=== PATIENT | male | born 1960 | race African-American/Black ===

== ENCOUNTER 2016-08-18 19:18 | Emergency (ER) | payer MEDICARE ==
[~2016-08-18] VITALS: Ht 198.1 cm; Wt 6.0 kg
[~2016-08-18 19:18] MED LIST: ALTACE10 M1 PO; ALTACE10 MG OR; AMOXICILLIN500 MG OR; BACTRIM DS1 TAB PO; BUPROPION150 M1 PO; CALCIUM500 M5 OR; CELEXA20 M1 PO; COLACE50 MG OR; ERY-TAB333 MG OR; HYDROCHLOROT12.5 M1 OR; HYDROCHLOROT12.5 MG PO; MELOXICAM7.5 MG PO; OMEGA 31000 MG PO; PLAVIX75 MG OR; PLAVIX75 MG PO; PRILOSEC10 M1 OR; PROTONIX40 M2 PO; ROBITUSSIN AC10 ML OR; SIMVASTATIN20 MG PO; ULTRAM50 M1 PO; WARFARIN5 MG OR; WARFARIN7.5 MG OR; ZOCOR10 MG OR; ZOLPIDEM10 M1 PO
[2016-08-18] MEDS ORDERED: HYDROCHLOROT12.5 MG PO (19:42)
[2016-08-18 21:06] LABS: INFLUENZA A NONE DETECTED (NONE DETECT); INFLUENZA B NONE DETECTED (NONE DETECT)
[2016-08-18 22:46] LABS: HEMOGLOBIN 11.3 g/dl (14.0-18.0); IMMATURE GRANULOCYTES 0.3 % (0.0-1.0); MEAN CELL VOLUME 81.1 fL CALC (80.0-100.0); MEAN CORPUSCULAR HGB 25.5 pG CALC (26.0-32.0); MEAN CORPUSCULAR HGB CONC 31.4 g/L CALC (32.0-36.0); NEUT# 5.26 thou/uL (1.82-7.42); RED BLOOD COUNT 4.44 mill/uL (4.70-6.10); RED CELL DISTRI WIDTH 16.3 % (11.5-15.5)
[2016-08-18 23:07] LABS: ALBUMIN 3.6 g/dL (3.2-5.0); ALKALINE PHOSPHATASE 78 u/l (38-126); ANION GAP 12 (6-22 (CALC)); BILIRUBIN, TOTAL 0.6 mg/dL (0.0-1.4); BUN 16 mg/dL (9-20); BUN/CREATININE RATIO 11 (12-20 (CALC)); CALCIUM 8.6 mg/dL (8.4-10.2); CARBON DIOXIDE 26 mmol/l (22-30); CHLORIDE 107 mmol/l (95-108); CREATININE 1.4 mg/dL (0.7-1.3); GFR 52 ML/MIN (>=60 (CALC)); GFR FOR AFR.AMER. > 60 ML/MIN (>=60 (CALC)); GLUCOSE 110 mg/dL (75-110); SGOT/AST 23 u/l (17-59); SGPT/ALT 28 u/l (21-72); SODIUM 141 mmol/l (137-146); TOTAL PROTEIN 6.4 g/dL (6.3-8.2)
[2016-08-19 00:50] LABS: URINE BILIRUBIN - DIPSTICK NEGATIVE (NEGATIVE); URINE BLOOD DIPSTICK TRACE-LYSED (NEGATIVE); URINE CLARITY CLEAR; URINE COLOR YELLOW; URINE GLUCOSE - DIPSTICK NEGATIVE (NEGATIVE); URINE KETONE TRACE mg/dL (NEGATIVE); URINE LEUK ESTERASE NEGATIVE (NEGATIVE); URINE NITRITE - DIPSTICK NEGATIVE (Negative); URINE PH 5.5 (4.5-8.0); URINE PROTEIN - DIPSTICK NEGATIVE (NEG-TRACE)
[2016-08-19] MEDS ORDERED: CODEINE/GUAIFEN1 SOL PO (01:27)
[2016-08-19] MEDS ORDERED: CIPROFLOXACN500 MG PO (01:27)
[2016-08-19 01:36] VITALS: BP 104/68
== END 2016-08-19 01:40 | disposition home or self-care (01) ==
LOC: ED 19:18
PROVIDERS: Emergency Medicine
DX: J06.9 Acute upper respiratory infection, unspecified (principal); R07.9 Chest pain, unspecified; R05 Cough; R00.1 Bradycardia, unspecified; R50.9 Fever, unspecified; I10 Essential (primary) hypertension

== ENCOUNTER 2019-12-14 04:05 | Observation (INO) | payer MEDICARE ==
[~2019-12-14] VITALS: Ht 182.9 cm; Wt 80.0 kg
[~2019-12-14 04:05] MED LIST changes: +CIPROFLOXACN500 MG PO; +CODEINE/GUAIFEN1 SOL PO
--- NOTE | 2019-12-14 04:15 | NUR ---
PATIENT AMBULATED TO ROOM WITH SKLOW STEADY GAIT AND PHYSICIAN NOTIFIED OF PATIENT STATUS
--- NOTE | 2019-12-14 04:31 | NUR ---
PATIENT UNABLE TO VERIFY MEDICATIONS AT THIS TIME. PHARMACY CNSULT PLACED
[2019-12-14 04:53] LABS: HEMATOCRIT 37.4 % (39.0-50.0); HEMOGLOBIN 11.5 g/dl (14.0-18.0); IMMATURE GRANULOCYTES 0.3 % (0.0-5.0); MEAN CELL VOLUME 81.5 fL CALC (80.0-100.0); MEAN CORPUSCULAR HGB 25.1 pG CALC (26.0-32.0); MEAN CORPUSCULAR HGB CONC 30.7 g/dL CAL (32.0-36.0); NEUT# 5.19 thou/uL (1.82-7.42); RED BLOOD COUNT 4.59 mill/uL (4.70-6.10); RED CELL DISTRI WIDTH 18.3 % (11.5-15.5)
[2019-12-14 05:08] LABS: ALKALINE PHOSPHATASE 92 u/l (38-126); AMYLASE 205 u/l (30-110); ANION GAP 9 (6-22 (CALC)); BILIRUBIN, TOTAL 0.6 mg/dL (0.0-1.4); BUN 24 mg/dL (9-20); BUN/CREATININE RATIO 17 (12-20 (CALC)); CARBON DIOXIDE 24 mmol/l (22-30); CHLORIDE 111 mmol/l (95-108); CREATININE 1.4 mg/dL (0.7-1.3); GFR 52 ML/MIN (>=60 (CALC)); GFR FOR AFR.AMER. > 60 ML/MIN (>=60 (CALC)); LIPASE 1098 u/l (23-300); POTASSIUM 3.8 mmol/l (3.5-5.1); SGOT/AST 22 u/l (17-59); SODIUM 139 mmol/l (137-146)
[2019-12-14 05:18] LABS: ALBUMIN 4.6 g/dL (3.2-5.0); TOTAL PROTEIN 7.9 g/dL (6.3-8.2)
--- NOTE | 2019-12-14 05:30 | NUR ---
PATIENT RESTING AWAITING LAB AND RADIOLOGY RESULTS PATINT STATES PAIN 3 ON 0-10 SCALE
--- NOTE | 2019-12-14 06:31 | NUR ---
PATIENT RESTING AWAITNG ROOM ASSIGNMENT PATIENT STATES PAIN 4 ON 0-10 SCALE
--- NOTE | 2019-12-14 06:47 | NUR ---
RECIEVED REPORT FROM MAYKEL LUCIANO.
--- NOTE | 2019-12-14 07:10 | NUR ---
GAVE REPORT TO CLIFTON
--- NOTE | 2019-12-14 07:17 | NUR ---
PT ARRIVED TO FLOOR VIA WC ACCOMAPNIED BY ED STAFF X 1. PT AMBULATED BY SELF INTO ROOM. PT. ALERT AND ORIENTED. STEADY GAIT. DENIES DIZZINESS. PT ORIENTED TO ROOM AND EQUIPMENT. CALL LIGHT REVIEWED AND IN REACH. PLAN OF CARE REVIEWED. PT. EDUCATED ON DISEASE PROCESS, DIET, AND IVF, STATES UNDERSTANDING. #20 RAC, NS @ 125 ML/HR STARTED AT THIS TIME. PT. DENIES PAIN AT THIS TIME.
--- NOTE | 2019-12-14 07:21 | NUR ---
PT TRANSPORTED TO [facility] SURG STABLE AND IN NO DISTRESS BY W/C. CARE ASSUMED TO CLIFTON Admission Note Report Given to: Transported by: X Wheelchair Stretcher Transported with: X Nurse Transporter X Patent IV O2 Pediatric Care Coordinator Location: ICU X MS2
[2019-12-14 07:31] VITALS: BP 147/82
[2019-12-14 07:55] LABS: URINE BILIRUBIN - DIPSTICK NEGATIVE (NEGATIVE); URINE BLOOD DIPSTICK TRACE-INTACT (NEGATIVE); URINE COLOR YELLOW; URINE GLUCOSE - DIPSTICK NEGATIVE (NEGATIVE); URINE KETONE NEGATIVE (NEGATIVE); URINE LEUK ESTERASE NEGATIVE (NEGATIVE); URINE NITRITE - DIPSTICK NEGATIVE (Negative); URINE PH 5.5 (4.5-8.0); URINE PROTEIN - DIPSTICK NEGATIVE (NEG-TRACE); URINE SPECIFIC GRAVITY 1.025
--- NOTE | 2019-12-14 09:47 | NUR ---
SHANTAL VERA IN TO SEE PT. AT THIS TIME. PLAN OF CARE UPDATED.
[2019-12-14] MEDS ORDERED: RAMIPRIL2.5 MG PO (10:31)
[2019-12-14] MEDS ORDERED: PLAVIX75 MG PO (10:32)
[2019-12-14] MEDS ORDERED: PROTONIX40 M2 PO (10:32)
[2019-12-14] MEDS ORDERED: CELEBREX100 M1 PO (10:32)
--- NOTE | 2019-12-14 12:25 | NUR ---
DR. FRANCO IN TO SEE PT. AT THIS TIME.
[2019-12-14 15:00] VITALS: BP 144/85
[2019-12-14 15:28] LABS: CHOLESTEROL HDL RATIO 4.5 (<4.4 (CALC))
--- NOTE | 2019-12-14 16:01 | NUR ---
PT. REPORTS NO RELIEF OF RUQ ABDOMINAL PIN FOLLOWING MORPHINE IV ADMINISTRATION. SHANTAL VERA NOTIFIED. TORADOL IV ORDERED AND ADMINISTERED. WILL MONITOR FOR EFFECTIVNESS.
[2019-12-14 19:10] VITALS: BP 144/89
--- NOTE | 2019-12-14 21:58 | NUR ---
PT ASSESSMENT COMPLETED AT THIS TIME. DENIES PAIN AT THIS TIME. REQUESTS SNACK. CHIP BAGS ARE VISUALIZED IN THE TRASHCAN, I REMINDED PT THAT HE IS ON A CLEAR LIQUID DIET. HUNGARIAN ICE PROVIDED/OFFERED JELLO, BUT IT WAS UNAVAILABLE. PT DENIES ANY OTHER NEEDS. LEFT WATCHING TV AND TALKING ON CELLPHONE.
--- NOTE | 2019-12-14 23:53 | NUR ---
IVF REPLENISHED AT THIS TIME. PT SLEEPING, NO S/O DISTRESS NOTED AT THIS TIME. LIGHTS ARE OUT AND TV ON LOW. PO FLUIDS REMOVED FROM BEDSIDE. PT REMINDED EARLIER ABOUT BECOMING NPO AT MIDNIGHT, EXPRESSED UNDERSTANDING.
--- NOTE | 2019-12-15 02:19 | NUR ---
PT SLEEPING, NO S/O DISTRESS.
[2019-12-15 03:50] VITALS: BP 147/87
--- NOTE | 2019-12-15 04:15 | NUR ---
PT MEDICATED FOR HEADACHE, DENIES ANY OTHER NEEDS OR C/O AT THIS TIME. CALL LIGHT AT SIDE AND PT ENCOURAGED TO CALL NEEDS ARISE.
--- NOTE | 2019-12-15 05:05 | NUR ---
PT SLEEPING, NO S/O DISTRESS NOTED. VIP CLEARED AT THIS TIME.
[2019-12-15 05:28] LABS: HEMATOCRIT 33.7 % (39.0-50.0); HEMOGLOBIN 10.1 g/dl (14.0-18.0); MEAN CELL VOLUME 82.2 fL CALC (80.0-100.0); MEAN CORPUSCULAR HGB 24.6 pG CALC (26.0-32.0); RED BLOOD COUNT 4.1 mill/uL (4.70-6.10); RED CELL DISTRI WIDTH 17.9 % (11.5-15.5)
[2019-12-15 05:49] LABS: ALKALINE PHOSPHATASE 74 u/l (38-126); ANION GAP 7 (6-22 (CALC)); BILIRUBIN, TOTAL 0.5 mg/dL (0.0-1.4); BUN 17 mg/dL (9-20); BUN/CREATININE RATIO 14 (12-20 (CALC)); CARBON DIOXIDE 22 mmol/l (22-30); CHLORIDE 111 mmol/l (95-108); CREATININE 1.2 mg/dL (0.7-1.3); GFR > 60 ML/MIN (>=60 (CALC)); GFR FOR AFR.AMER. > 60 ML/MIN (>=60 (CALC)); LIPASE 619 u/l (23-300); POTASSIUM 4.2 mmol/l (3.5-5.1); SGOT/AST 16 u/l (17-59); SODIUM 136 mmol/l (137-146); TOTAL PROTEIN 6.6 g/dL (6.3-8.2)
[2019-12-15 05:51] LABS: ALBUMIN 3.6 g/dL (3.2-5.0)
--- NOTE | 2019-12-15 06:23 | NUR ---
IVF REPLENISHED AT THIS TIME. PT SLEEPING, BUT AWOKE TO MY ENTERING THE ROOM. DID NOT RESPOND VERBALLY, JUST TURNED BACK OVER AND CLOSED HIS EYES TO RETURN TO SLEEP. NO S/O DISTRESS. ROOM IS DARK AND TV IS ON.
[2019-12-15 07:25] VITALS: BP 132/81
--- NOTE | 2019-12-15 07:25 | NUR ---
ASSESSMENT IS COMPLETED: IV SITE IS FREE FROM REDNESS OR EDEMA. HR IS REG,PULSES ARE STRONG X4, ABD IS SOFT WITH ACTIVE BS. BREATH SOUNDS ARE CLEAR,BILATERALLY, NO C/O SOB, CONTINUE TO OBSERVE AND MONITOR.
--- NOTE | 2019-12-15 10:50 | NUR ---
PT TRANSPORTED TO HAVE US COMPLETED VIA WC WITH NO DISTRESS NOTED.
--- NOTE | 2019-12-15 12:00 | NUR ---
PT IS IN US. CONTINUE TO OBSERVE AND MONITOR.
--- NOTE | 2019-12-15 12:30 | NUR ---
PT RETURNED FROM HAVING US COMPLETED: TOLERATED WELL. INQUIRED ABOUT PNEUMONIA VACCINE. WILL WAIT ON GETTING IT.
--- NOTE | 2019-12-15 14:52 | NUR ---
IV SITE DISCONITNUED CATHETER INTACT. NO REDNESS OR EDEMA. DISCHARGE INSTRUCTIONS GIVEN AND VERBALIZED UNDERSTANDING. Discharge instructions given. Patient verbalizes understanding of same. Discharged in stable condition via Wheelchair to Home with family. All belongings sent with pt.
--- NOTE | 2019-12-15 14:53 | NUR ---
PT TRANSPORTED TO THE FRONT FOR DISCHARGE WITH FAMILY
== END 2019-12-15 14:52 | disposition home or self-care (01) ==
LOC: ED 04:05 → ED-I 06:14 → ED 06:27 → MS2 06:28 → ED-I 06:28 → MS2 07:06
PROVIDERS: Nurse Practitioner Family; ADMIT Internal Medicine; ATTEND Internal Medicine
PROC: 3E0234Z Introduction of Serum, Toxoid and Vaccine into Muscle, Percutaneous Approach (ICD-10-PCS; principal; 2019-12-15)
DX: K85.90 Acute pancreatitis without necrosis or infection, unspecified (principal); I10 Essential (primary) hypertension; E78.5 Hyperlipidemia, unspecified; F17.200 Nicotine dependence, unspecified, uncomplicated; Z87.11 Personal history of peptic ulcer disease; Z86.73 Personal history of transient ischemic attack (TIA), and cerebral infarction without residual deficits; Z23 Encounter for immunization; Z20.828 Contact with and (suspected) exposure to other viral communicable diseases
CPT/HCPCS: G0378; Q9967

== ENCOUNTER 2020-07-20 08:20 | Emergency (ER) | payer MEDICARE ==
[~2020-07-20] VITALS: Ht 182.9 cm; Wt 83.0 kg
[~2020-07-20 08:20] MED LIST changes: +CELEBREX100 M1 PO; +RAMIPRIL2.5 MG PO
[2020-07-20] MEDS ORDERED: HYDROCHLOROT25 MG PO (08:43)
[2020-07-20] MEDS ORDERED: TOBRAMYCIN0.31 OD (09:23)
[2020-07-20 09:52] VITALS: BP 126/85
== END 2020-07-20 10:07 | disposition home or self-care (01) ==
LOC: ED 08:20
DX: S05.01XA Injury of conjunctiva and corneal abrasion without foreign body, right eye, initial encounter (principal); H10.9 Unspecified conjunctivitis; I10 Essential (primary) hypertension; F17.210 Nicotine dependence, cigarettes, uncomplicated; X58.XXXA Exposure to other specified factors, initial encounter; Z86.73 Personal history of transient ischemic attack (TIA), and cerebral infarction without residual deficits

== ENCOUNTER 2020-09-22 22:29 | Emergency (ER) | payer MEDICARE ==
[~2020-09-22 22:29] MED LIST changes: +HYDROCHLOROT25 MG PO; +TOBRAMYCIN0.31 OD
[2020-09-22 22:58] VITALS: BP 113/76
[2021-05-29] MEDS ORDERED: CLOPIDOGREL75 MG PO (07:24)
== END 2020-09-23 00:31 | disposition home or self-care (01) ==
LOC: ED 22:29
DX: L76.22 Postprocedural hemorrhage of skin and subcutaneous tissue following other procedure (principal); I10 Essential (primary) hypertension; F17.200 Nicotine dependence, unspecified, uncomplicated; Y84.0 Cardiac catheterization as the cause of abnormal reaction of the patient, or of later complication, without mention of misadventure at the time of the procedure; Z86.73 Personal history of transient ischemic attack (TIA), and cerebral infarction without residual deficits

== ENCOUNTER 2021-02-18 16:04 | Emergency (ER) | payer MEDICARE ==
[~2021-02-18] VITALS: Ht 182.9 cm; Wt 100.0 kg
[2021-02-18] MEDS ORDERED: CELEXA20 MG PO (16:34)
[2021-02-18] MEDS ORDERED: AMLODIPINE BESYL5 MG PO (16:34)
[2021-02-18] MEDS ORDERED: ALTACE10 MG PO (16:34)
[2021-02-18 18:05] VITALS: BP 122/79
== END 2021-02-18 18:05 | disposition home or self-care (01) ==
LOC: ED 16:04
DX: S20.211A Contusion of right front wall of thorax, initial encounter (principal); I10 Essential (primary) hypertension; F17.200 Nicotine dependence, unspecified, uncomplicated; W17.89XA Other fall from one level to another, initial encounter; Y92.009 Unspecified place in unspecified non-institutional (private) residence as the place of occurrence of the external cause; Z86.73 Personal history of transient ischemic attack (TIA), and cerebral infarction without residual deficits

== ENCOUNTER 2022-03-16 19:58 | Emergency (ER) | payer MEDICARE ==
[~2022-03-16] VITALS: Ht 182.9 cm; Wt 81.8 kg
[~2022-03-16 19:58] MED LIST changes: +ALTACE10 MG PO; +AMLODIPINE BESYL5 MG PO; +CELEXA20 MG PO; +CLOPIDOGREL75 MG PO
[2022-03-16] MEDS ORDERED: ALTACE10 M1 PO (20:14)
[2022-03-16] MEDS ORDERED: PLAVIX75 MG PO (20:15)
[2022-03-16] MEDS ORDERED: AMOXICILLIN500 MG PO (20:22)
[2022-03-16] MEDS ORDERED: TYLENOL # 31 TA1 PO (20:22)
[2022-03-16] MEDS ORDERED: VOLTAREN75 MG PO (20:22)
[2022-03-16 20:26] VITALS: BP 136/93
== END 2022-03-16 20:40 | disposition home or self-care (01) ==
LOC: ED 19:58
DX: K04.7 Periapical abscess without sinus (principal); I10 Essential (primary) hypertension; F17.200 Nicotine dependence, unspecified, uncomplicated; Z86.73 Personal history of transient ischemic attack (TIA), and cerebral infarction without residual deficits

== ENCOUNTER 2022-06-05 04:54 | Emergency (ER) | payer MEDICARE ==
[~2022-06-05] VITALS: Ht 182.9 cm; Wt 84.1 kg
[~2022-06-05 04:54] MED LIST changes: +AMOXICILLIN500 MG PO; +TYLENOL # 31 TA1 PO; +VOLTAREN75 MG PO
[2022-06-05 05:09] VITALS: BP 128/86
[2022-06-05 05:15] VITALS: BP 126/93
[2022-06-05] MEDS ORDERED: CELEBREX200 MG PO (05:24)
[2022-06-05 05:30] VITALS: BP 147/98
== END 2022-06-05 05:41 | disposition home or self-care (01) ==
LOC: ED 04:54
DX: M26.651 Arthropathy of right temporomandibular joint (principal); I10 Essential (primary) hypertension; F17.210 Nicotine dependence, cigarettes, uncomplicated; Z86.73 Personal history of transient ischemic attack (TIA), and cerebral infarction without residual deficits

== ENCOUNTER 2022-09-03 18:20 | Emergency (ER) | payer MEDICARE ==
[2022-09-03] VITALS (16 sets, daily range): BP systolic 134–170; BP diastolic 81–103
[~2022-09-03] VITALS: Ht 182.9 cm; Wt 82.4 kg
[~2022-09-03 18:20] MED LIST changes: +CELEBREX200 MG PO
[2022-09-03 19:20] LABS: URINE BILIRUBIN - DIPSTICK NEGATIVE (NEGATIVE); URINE BLOOD DIPSTICK TRACE-INTACT (NEGATIVE); URINE COLOR YELLOW; URINE GLUCOSE - DIPSTICK NEGATIVE (NEGATIVE); URINE KETONE NEGATIVE (NEGATIVE); URINE LEUK ESTERASE NEGATIVE (NEGATIVE); URINE PROTEIN - DIPSTICK NEGATIVE (NEG-TRACE)
[2022-09-03 19:20] LABS: BASO% 0.4 % (0-3); EOS% 3.8 % (0-8); HEMATOCRIT 37.6 % (39.0-50.0); HEMOGLOBIN 11.4 g/dl (14.0-18.0); IMMATURE GRANULOCYTES 0.1 % (0.0-5.0); LYMPH% 32.7 % (15-41); MEAN CELL VOLUME 83.4 fL CALC (80.0-100.0); MEAN CORPUSCULAR HGB 25.3 pG CALC (26.0-32.0); MEAN CORPUSCULAR HGB CONC 30.3 g/dL CAL (32.0-36.0); MONO% 7.5 % (2-13); NEUT# 4.06 thou/uL (1.82-7.42); NEUT% 55.5 % (42-76); RED BLOOD COUNT 4.51 mill/uL (4.70-6.10); RED CELL DISTRI WIDTH 16.3 % (11.5-15.5)
[2022-09-03 19:22] LABS: URINE NITRITE - DIPSTICK NEGATIVE (Negative)
[2022-09-03 19:31] LABS: ALKALINE PHOSPHATASE 85 u/l (38-126); ANION GAP 12 (6-22 (CALC)); BILIRUBIN, TOTAL 0.5 mg/dL (0.2-1.3); BUN 21 mg/dL (8-23); BUN/CREATININE RATIO 13 (12-20 (CALC)); CARBON DIOXIDE 25 mmol/l (22-30); CHLORIDE 110 mmol/l (95-108); CREATININE 1.6 mg/dL (0.7-1.3); GFR FOR AFR.AMER. 53 ML/MIN (>=60 (CALC)); GFR OTHER RACES 44 ML/MIN (>=60 (CALC)); LIPASE 366 u/l (23-300); POTASSIUM 4.3 mmol/l (3.5-5.1); SGOT/AST 27 u/l (19-48); SODIUM 142 mmol/l (137-146); TOTAL PROTEIN 7.7 g/dL (6.3-8.2)
[2022-09-03 19:36] LABS: ALBUMIN 4.5 g/dL (3.2-5.0)
[2022-09-03] MEDS ORDERED: PERCOCET 5/321 COMBO PO (22:05)
== END 2022-09-03 22:30 | disposition home or self-care (01) ==
LOC: ED 18:20
PROVIDERS: Emergency Medicine
DX: K85.90 Acute pancreatitis without necrosis or infection, unspecified (principal); I10 Essential (primary) hypertension; F17.210 Nicotine dependence, cigarettes, uncomplicated; Z86.73 Personal history of transient ischemic attack (TIA), and cerebral infarction without residual deficits; Z85.46 Personal history of malignant neoplasm of prostate

== ENCOUNTER 2022-09-04 16:02 | Observation (INO) | payer MEDICARE ==
[2022-09-04] VITALS (19 sets, daily range): BP systolic 106–164; BP diastolic 77–99
[~2022-09-04] VITALS: Ht 182.9 cm; Wt 82.4 kg
[~2022-09-04 16:02] MED LIST changes: +PERCOCET 5/321 COMBO PO
--- NOTE | 2022-09-04 16:12 | NUR ---
PT AMBULATED TO ROOM, NO SIGNS OF ACUTE DISTRESS
--- NOTE | 2022-09-04 16:15 | NUR ---
PT ARRIVED TO ER W CC OF ABDOMINAL PAIN. PT REPORTS PAIN STARTED A WEEK AGO. PT A/OX4 ANXIOUS, DENIES SOB ON ROOMAIR SATING 100%. VITALS NOTED. NOTIFIED. FALL AND SAFETY PRECAUTIONS IN PLACE. CALL LIGHT WITHIN REACH.
[2022-09-04 17:51] LABS: BASO% 0.3 % (0-3); EOS% 4.1 % (0-8); HEMATOCRIT 39.2 % (39.0-50.0); IMMATURE GRANULOCYTES 0.2 % (0.0-5.0); LYMPH% 30.4 % (15-41); MEAN CELL VOLUME 82.9 fL CALC (80.0-100.0); MEAN CORPUSCULAR HGB 25.4 pG CALC (26.0-32.0); MEAN CORPUSCULAR HGB CONC 30.6 g/dL CAL (32.0-36.0); MONO% 7.1 % (2-13); NEUT# 3.78 thou/uL (1.82-7.42); NEUT% 57.9 % (42-76); RED BLOOD COUNT 4.73 mill/uL (4.70-6.10); RED CELL DISTRI WIDTH 16.1 % (11.5-15.5)
[2022-09-04 17:59] LABS: ALBUMIN 4.4 g/dL (3.2-5.0); ALKALINE PHOSPHATASE 81 u/l (38-126); ANION GAP 11 (6-22 (CALC)); BILIRUBIN, TOTAL 0.6 mg/dL (0.2-1.3); BUN 17 mg/dL (8-23); BUN/CREATININE RATIO 12 (12-20 (CALC)); CHLORIDE 105 mmol/l (95-108); CREATININE 1.4 mg/dL (0.7-1.3); GFR FOR AFR.AMER. > 60 ML/MIN (>=60 (CALC)); GFR OTHER RACES 51 ML/MIN (>=60 (CALC)); LIPASE 196 u/l (23-300); POTASSIUM 3.7 mmol/l (3.5-5.1); SGOT/AST 29 u/l (19-48); SODIUM 143 mmol/l (137-146); TOTAL PROTEIN 7.5 g/dL (6.3-8.2)
[2022-09-04 18:04] LABS: CARBON DIOXIDE 31 mmol/l (22-30)
--- NOTE | 2022-09-04 19:15 | NUR ---
PT RESTING COMFORTABLY IN ROOM. DENIES PAIN SOB OR [id number] AT THIS TIME.
--- NOTE | 2022-09-04 23:00 | NUR ---
PT BROUGHT UP FROM ER @2155, VIA WHEELCHAIR. PT AMBULATED WITH STEADY GAIT FROM WHEELCHAIR TO USE RESTROOM, THEN AMBULATED TO BED. PT IS A/OX4, COMPLAINS OF PAIN 8 OUT OF 10 IN RUQ AREA OF ABD, TENDERNESS IN THAT AREA. PT DID NOT COME UP TELE MONITOR. PT HEART RATE AT TIME OF ARRIVAL WAS 44.PT WAS ASYMPTOMATIC. INFORMED PHYSICIAN CORPORATE COMPLIANCE DIRECTOR OF PT PAIN STATUS AND TELE STATUS. ORDER PUT IN FOR TELE MONITORING OF PT, PT STATED SEEING A BAG SEWER FOR HR, NOT A NEW OCCURENCE. PAIN MEDICATION TORB AND FAXED TO PHARMACY. MEDICATION ADMINISTERED. PT ASSESSMENT COMPLETED. NO SWELLING, ON ROOM AIR, SKIN INTACT AND NO ABNORMAL FINDINGS. PT EDUCATED OF CURRENT PLAN OF CARE, DIET AFTER MIDNIGHT AND SAFETY PRECAUTIONS. CALL LIGHT WITHIN REACH AND SAFETY PRECAUTIONS IN PLACE.
[2022-09-05] VITALS (7 sets, daily range): BP systolic 134–169; BP diastolic 85–98
--- NOTE | 2022-09-05 04:15 | NUR ---
PT LAYING IN BED RESTING COMFORTABLY. PT HR HAS BEEN SUSTAINING BETWEEN 38-42. PT IS ASYMPTOMATIC. MENTAL HEALTH COORDINATOR PHYSICIAN IS AWARE OF TREND. ED PHYSICIAN CALLED FOR UPDATE ON PT STATUS, ORDERED EKG. CONTACTED RESPIRATORY, AWAITING EKG. PT DENIES ANY PAIN AT THIS TIME. CALL LIGHT WITHIN REACH AND SAFETY PRECAUTIONS IN PLACE.
[2022-09-05 06:01] LABS: HEMATOCRIT 36.4 % (39.0-50.0); HEMOGLOBIN 11.1 g/dl (14.0-18.0); MEAN CELL VOLUME 83.7 fL CALC (80.0-100.0); MEAN CORPUSCULAR HGB 25.5 pG CALC (26.0-32.0); MEAN CORPUSCULAR HGB CONC 30.5 g/dL CAL (32.0-36.0); RED BLOOD COUNT 4.35 mill/uL (4.70-6.10); RED CELL DISTRI WIDTH 16.2 % (11.5-15.5)
[2022-09-05 06:25] LABS: ALBUMIN 3.8 g/dL (3.2-5.0); ALKALINE PHOSPHATASE 78 u/l (38-126); AMYLASE 110 u/l (30-110); ANION GAP 8 (6-22 (CALC)); BILIRUBIN, TOTAL 0.6 mg/dL (0.2-1.3); BUN 13 mg/dL (8-23); BUN/CREATININE RATIO 10 (12-20 (CALC)); CARBON DIOXIDE 27 mmol/l (22-30); CHLORIDE 107 mmol/l (95-108); CREATININE 1.3 mg/dL (0.7-1.3); GFR FOR AFR.AMER. > 60 ML/MIN (>=60 (CALC)); GFR OTHER RACES 56 ML/MIN (>=60 (CALC)); LIPASE 441 u/l (23-300); MAGNESIUM 1.9 mg/dL (1.6-2.3); POTASSIUM 4.2 mmol/l (3.5-5.1); SGOT/AST 21 u/l (19-48); SODIUM 137 mmol/l (137-146); TOTAL PROTEIN 6.5 g/dL (6.3-8.2)
--- NOTE | 2022-09-05 10:20 | NUR ---
PATIENT RESTING STATING THAT HIS ABD PAIN IS GETTING WORSE. PROVIDED HIM WITH MORPHINE 4MG. ENCOURAGE PATIENT TO REST. WILL CONTINUE TO MONITOR.
--- NOTE | 2022-09-05 11:00 | NUR ---
PATIENT STATED THAT THE MORPHINE WORKED THAT HE IS COMFORTABLE AT THIS TIME. WILL CONTINUE TO MONITOR.
--- NOTE | 2022-09-05 12:00 | NUR ---
PATIENT RESTING INFORMED PATIENT OF CLEAR LIQUID DIET TRAY COMING UP SHORTLY. PATIENT STATED FEEL "OKAY" WILL CONTINUE TO MONITOR.
--- NOTE | 2022-09-05 16:29 | NUR ---
PATIENT STATED THAT AFTER EATING HIS PAIN STARTED TO COME BACK UP AT 1600 HIS PAIN WAS 10/10. NURSE PROVIDED MORPINE AGAIN BUT PAIN LEVEL ONLY DECREASED SLIGHTLY 6/10. WILL CONTINUE TO MONITOR INFORM PATIENT THAT IF HIS PAIN DIDN'T CONTINUE TO DECREASE HE HAD LORTAB AVAILABLE. PATIENT STATED UNDERSTANDING. WILL CONTINUE TO MONITOR.
--- NOTE | 2022-09-05 19:25 | NUR ---
RECEIVED REORT FROM DAYHIFT NURSE. PT NOTED LAYING ON LT SIDE OF BED, JSUT RECEIVED PAIN MEDICATION FROM DAYSHIFT NURSE. PT AT BEDSIDE. EDUCATED PT ON CONTINUED PLAN OF CARE AT THIS TIME AND PAIN MANAGEMENT. CALL LIGHT WITHIN REACH AND SAFETY PRECAUTIONS IN PLACE.
--- NOTE | 2022-09-05 21:55 | NUR ---
PT RECEIVED 2100 MEDICATIONS PER EMAR. PT JUST STATED THAT THEY VOMITTED. DID NOT WITNESS OR SEE EMESIS. PT STATES NOT FEELING NAUSEOUS AT THIS TIME AND DENIES ANY PAIN. CALL LIGHT WITHIN REACH AND SAFETY PRECAUTIONS IN PLACE.
[2022-09-06] VITALS: BP 136/85
--- NOTE | 2022-09-06 00:30 | NUR ---
PT RESTING COMFORTABLY IN BED ON RT SIDE. NO COMPLAINTS OF PAIN OR NAUSEA AT THIS TIME. CALL LIGHT WITHIN REACH AND SAFETY PRECAUTIONS IN PLACE.
[2022-09-06 04:00] VITALS: BP 167/93
--- NOTE | 2022-09-06 04:15 | NUR ---
PT NOTED LAYING IN BED, LAB IN ROOM WITH PT AT THIS TIME. DENIES ANY PAIN. CALL LIGHT WITHIN REACH AND SAFETY PRECAUTIONS IN PLACE.
[2022-09-06 04:27] VITALS: BP 167/93
[2022-09-06 06:47] VITALS: BP 151/79
--- NOTE | 2022-09-06 08:00 | NUR ---
PATIENT STATED FEELING BETTER. PATIENT ASK FOR TYLENOL FOR HEADACHE. PATIENT IS ON IV FLUIDS AND TOLERATING ORAL NUTRITION. WILL CONTINUE TO MONITOR.
[2022-09-06 08:16] LABS: ALBUMIN 3.7 g/dL (3.2-5.0); ALKALINE PHOSPHATASE 84 u/l (38-126); ANION GAP 9 (6-22 (CALC)); BUN 13 mg/dL (8-23); BUN/CREATININE RATIO 10 (12-20 (CALC)); CARBON DIOXIDE 25 mmol/l (22-30); CHLORIDE 108 mmol/l (95-108); CREATININE 1.3 mg/dL (0.7-1.3); GFR FOR AFR.AMER. > 60 ML/MIN (>=60 (CALC)); GFR OTHER RACES 56 ML/MIN (>=60 (CALC)); LIPASE 228 u/l (23-300); POTASSIUM 4.1 mmol/l (3.5-5.1); SODIUM 137 mmol/l (137-146); TOTAL PROTEIN 6.5 g/dL (6.3-8.2)
[2022-09-06 08:20] LABS: BILIRUBIN, TOTAL 3.1 mg/dL (0.2-1.3); SGOT/AST 47 u/l (19-48)
[2022-09-06 10:04] VITALS: BP 162/90
[2022-09-06] MEDS ORDERED: CARAFATE PO (13:55)
[2022-09-06 14:15] VITALS: BP 146/88
[2022-09-06 14:24] LABS: ALBUMIN 3.7 g/dL (3.2-5.0); TOTAL PROTEIN 6.5 g/dL (6.3-8.2)
[2022-09-06 14:29] LABS: BILIRUBIN, TOTAL 1.4 mg/dL (0.2-1.3)
--- NOTE | 2022-09-06 16:33 | NUR ---
Discharge instructions given. Patient verbalizes understanding of same. Discharged in stable condition via Ambulatory to Home with relative. All belongings sent with pt.
== END 2022-09-06 16:33 | disposition home or self-care (01) ==
LOC: ED 16:02 → ED-I 19:30 → ED 20:05 → MS2 20:06
PROVIDERS: Nurse Practitioner; ADMIT Internal Medicine; ATTEND Internal Medicine
DX: K85.90 Acute pancreatitis without necrosis or infection, unspecified (principal); K21.9 Gastro-esophageal reflux disease without esophagitis; I10 Essential (primary) hypertension; R00.1 Bradycardia, unspecified; E78.5 Hyperlipidemia, unspecified; F17.200 Nicotine dependence, unspecified, uncomplicated; Z87.11 Personal history of peptic ulcer disease; Z85.46 Personal history of malignant neoplasm of prostate; Z86.73 Personal history of transient ischemic attack (TIA), and cerebral infarction without residual deficits
CPT/HCPCS: J1650; S0164